=== PATIENT | male | born 1975 | race Caucasian/White ===

== ENCOUNTER 2024-09-12 05:09 | Emergency (ER) | payer BC, OTHER ==
[2024-09-12] MEDS ORDERED: Ondansetron PF 4 MG/2 ML Vial ONE (05:21)
[2024-09-12] MEDS ORDERED: Morphine 4 MG/ML VIAL ONE (05:21)
[2024-09-12 05:35] LABS: #Basophils 0.1 thou/uL (0.0-0.2); #Eosinophils 0.2 thou/uL (0.0-0.7); #Lymphocytes 2.8 thou/uL (1.20-3.40); #Monocytes 0.5 thou/uL (0.11-0.59); #Neutrophils 3.2 thou/uL (1.40-6.50); %Basophils 1.4 % (0.0-1.0); %Eosinophils 3.3 % (0.0-10.0); %Lymphocytes 41.2 % (21.0-51.0); %Monocytes 6.9 % (0.0-10.0); %Neutrophils 47.3 % (42.0-75.0); Hematocrit 47.9 % (42.0-52.0); Hemoglobin 15.3 g/dL (14.0-18.0); Mean Corpuscular Hemoglobin 27.3 pg (27.0-31.0); Mean Corpuscular Volume 85.1 fl (78.0-98.0); Mean Platelet Volume 8.1 fL (7.4-10.4); Platelet Count 195 10x3/uL (130-400); RBC Distribution Width 12.3 % (11.5-14.5); Red Blood Cell (RBC) Count 5.63 mill/uL (4.70-6.10); White Blood Cell (WBC) Count 6.8 10x3/uL (4.8-10.8)
[2024-09-12 05:43] LABS: Prothrombin Time 12.9 sec (12.0-14.7)
[2024-09-12 05:44] LABS: PTT 28.4 sec (22.9-36.1)
[2024-09-12 05:52] LABS: ALT (SGPT) 46 U/L (8-55); AST (SGOT) 29 U/L (5-34); Albumin 3.5 g/dL (3.5-5.0); Alcohol Less than 10.0 mg/dL (Less than 10); Alkaline Phosphatase 76 U/L (40-110); Anion Gap 15 mmol/L (10-20); BUN (Urea Nitrogen) 8 mg/dL (8.9-20.6); Bilirubin, Total 0.3 mg/dL (0.2-1.2); Calc. Creatinine Clearance 0 mL/min (70-130); Calcium 9.1 mg/dL (7.8-10.44); Carbon Dioxide 19 mmol/L (22-29); Chloride 111 mmol/L (98-107); Estimated GFR 86; Globulin 2.9 g/dL (2.4-3.5); Glucose 177 mg/dL (70-105); Lipase 47 U/L (8-78); Potassium 3.9 mmol/L (3.5-5.1); Protein, Total 6.4 g/dL (6.0-8.3); Sodium 141 mmol/L (136-145)
[2024-09-12 05:54] LABS: Troponin I Less than 0.010 ng/mL (< 0.028)
[2024-09-12] MEDS ORDERED: Iopamidol 370 76% 100 ML VIAL ONE (09:00)
== END 2024-09-12 08:40 | disposition home or self-care (01) ==
LOC: MADERS 05:09
DX: R07.89 Other chest pain (principal); E78.5 Hyperlipidemia, unspecified; F17.290 Nicotine dependence, other tobacco product, uncomplicated; Z79.899 Other long term (current) drug therapy; V89.2XXA Person injured in unspecified motor-vehicle accident, traffic, initial encounter
CPT/HCPCS: 71260; 74177; 80053; 80307; 83690; 84484; 85025; 85610; 85730; 93005; 94760; 96374; 96375; J2272; J2405; Q9967